=== PATIENT | female | born 1975 | race Caucasian/White ===

== ENCOUNTER → 2019-02-20 11:41 | Outpatient (CLI) | payer OTHER, SELFPAY ==
--- NOTE | 2019-02-20 | DI.RAD.S_ITS ---
PROCEDURE: XR ANKLE LT MIN 3V INDICATIONS: FOOT AND ANKLE PAIN TECHNIQUE: 3 views of the ankle were acquired. COMPARISON: [facility] [place], DIANNE, FOOT COMP MIN 3VW (LT), 05/30/2014, 14:51. FINDINGS: Bones: No fractures or dislocations. Ankle mortise is normally aligned. No suspicious bony lesions. Prominent plantar calcaneal spur. There is diffuse hindfoot and midfoot degenerative spurring. Soft tissues: No tibiotalar joint effusion. Achilles tendon appears normal. IMPRESSION: Prominent plantar calcaneal spur, which is slightly progressed since the prior study. Diffuse hindfoot and mid foot degeneration. Dictated by: Travon Navarro M.D. on 02/20/2019 at 13:07 Approved by: Travon Navarro M.D. on 02/20/2019 at 13:09
--- NOTE | 2019-02-20 | DI.RAD.S_ITS ---
PROCEDURE: XR FOOT RT MIN 3V INDICATIONS: LEFT FOOT ANKLE PAIN TECHNIQUE: 3 views of the foot were acquired. COMPARISON: [facility], [place], XR ANKLE LT MIN 3V, 02/20/2019, 11:53. FINDINGS: Bones: Subtle lucency projecting in the fifth metatarsal base although technically indeterminate. Elsewhere, no fracture seen. No suspicious bony lesions. Large plantar calcaneal spur. Diffuse hindfoot degenerative spurring. Soft tissues: No tibiotalar joint effusion. Achilles tendon appears normal. IMPRESSION: Large plantar calcaneal spur. Subtle lucencies projecting in the fifth metatarsal base raising possibility of nondisplaced fracture however technically indeterminate and only seen on one view. Please correlate clinically for point tenderness, and if needed continued assessment with followup radiographs in 10 days to assess for healing sclerosis could be performed. Dictated by: Travon Navarro M.D. on 02/20/2019 at 13:51 Approved by: Travon Navarro M.D. on 02/20/2019 at 13:54
== END ==
PROVIDERS: PCP Family Medicine; Visit Provider Family Medicine
DX: M25.572 Pain in left ankle and joints of left foot (principal); M77.32 Calcaneal spur, left foot; M77.31 Calcaneal spur, right foot; M19.072 Primary osteoarthritis, left ankle and foot
CPT/HCPCS: 73610; 73630